=== PATIENT | male | born 1970 | race Hispanic/Latino ===

== ENCOUNTER 2017-05-10 04:08 | Emergency (ER) | payer BC, SELFPAY ==
[2017-05-10 04:22] LABS: Nitrite Negative (Negative); Protein, Urine (Dipstick) Negative (Neg-Trace)
[2017-05-10 04:23] LABS: Bilirubin Negative (Negative); Blood, Urine Moderate (Negative); Glucose, Urine (Dipstick) Negative (Negative); Ketone, Urine Negative (Negative); Urobilinogen 0.2 mg/dL (0.2-1.0)
[2017-05-10 04:46] LABS: Bacteria/HPF None Seen HPF (None Seen); Hyaline Casts/LPF 0-3 HYALINE CAST LPF (0-3 Hyaline); RBC/HPF 21-50 HPF (0-3); Squamous Epithelial None Seen HPF (0-3); WBC/HPF 0-3 HPF (0-3)
[2017-05-10 04:57] LABS: #Basophils 0.1 thou/uL (0.0-0.2); #Eosinphils 0.2 thou/uL (0.0-0.7); #Lymphocytes 1.9 thou/uL (1.20-3.40); #Monocytes 0.8 thou/uL (0.11-0.59); #Neutrophils 6.3 thou/uL (1.40-6.50); %Basophils 0.8 % (0.0-1.0); %Eosinophils 1.7 % (0.0-10.0); %Lymphocytes 20.8 % (21.0-51.0); %Monocytes 8.4 % (0.0-10.0); Hematocrit 47.7 % (42.0-52.0); Red Blood Cell (RBC) Count 5.32 mill/uL (4.70-6.10); White Blood Cell (WBC) Count 9.2 thou/uL (4.8-10.8)
[2017-05-10 05:16] LABS: ALT (SGPT) 32 U/L (8-55); AST (SGOT) 21 U/L (5-34); Alkaline Phosphatase 110 U/L (40-150); Anion Gap 14 mmol/L (10-20); BUN (Urea Nitrogen) 33 mg/dL (8.9-20.6); Bilirubin, Total 0.7 mg/dL (0.2-1.2); Calc. Creatinine Clearance 0 mL/min (70-130); Calcium 9.5 mg/dL (7.8-10.44); Carbon Dioxide 24 mmol/L (22-29); Chloride 105 mmol/L (98-107); Estimated GFR-MDRD 33; Globulin 3.2 g/dL (2.4-3.5); Protein, Total 7.6 g/dL (6.0-8.3)
[2017-05-10] MEDS ORDERED: cloNIDine HCl 0.1 MG TAB ONE (07:30)
--- NOTE | 2017-05-10 07:49 | ULT ---
SCROTAL ULTRASOUND INCLUDING COLOR AND SPECTRAL DOPPLER IMAGING: HISTORY: A 46-year-old male with left testicular pain. FINDINGS: The right testis measures 4.5 x 3.0 x 3.1 cm. The left testis measures 4.3 x 3.0 x 2.4 cm. Epididy mal regions appear within normal limits. 0.7 x 0.5 right epididymal head cyst and a 0.3 x 0.4 cm le ft intratesticular cyst. Two tiny microlithiasis foci in the right testes. No abnormal hydrocele. Vascular duplex with color and spectral and Doppler imaging demonstrates arterial inflow and venous outflow to both testes. No evidence for testicular torsion. Trace fluid in both right and left scr otum decreased from the prior study of 10/15/11. No evidence of intratesticular mass or testicular t orsion. IMPRESSION: No intratesticular mass or testicular torsion. Small left intratesticular cyst. Small right epidid ymal cyst. Two tiny punctate microlithiasis in the right scrotum. No other significant acute proce ss. POS: OFF
--- NOTE | 2017-05-10 07:50 | ULT ---
BILATERAL RENAL ULTRASOUND COMPLETE: HISTORY: A 46-year-old male with left kidney pain. History of kidney stones. FINDINGS: The right kidney measures 12.0 x 6.4 x 5.3 cm. The left kidney measures 11.9 x 7.8 x 7.5 cm. No re nal hydronephrosis or perinephric process. The bladder appears unremarkable. IMPRESSION: Unremarkable bilateral renal ultrasound. POS: OFF
== END 2017-05-10 09:50 | disposition home or self-care (01) ==
LOC: ERS 04:08
DX: N23 Unspecified renal colic (principal); I10 Essential (primary) hypertension; R31.9 Hematuria, unspecified
CPT/HCPCS: 36415; 76770; 76870; 80053; 81003; 81015; 85025; 93976; 94760